=== PATIENT | female | born 1970 | race American Indian/Alaskan Native ===

== ENCOUNTER 2020-05-05 06:27 | Emergency (ER) | payer OTHER ==
[2020-05-05 07:51] VITALS: BP 154/93
[2020-05-05 08:10] LABS: Bilirubin,Urine NEG (Negative); Blood,Urine NEG (Negative); Color,Urine Straw (Yellow); Protein,Urine <15 mg/dL mg/dL (Negative); RBC,Urine < 1.0 /HPF (0.0-6.0); Urobilinogen,Urine < 2.0 mg/dL (<2.0)
[2020-05-05 09:39] LABS: Hematocrit 38.3 % (30.3-42.9); Hemoglobin 12.6 gm/dl (10.1-14.3); Mean Corpuscular HGB Conc 33 % (30-34); Mean Corpuscular Volume 91 fl (79-97); Platelet Count 246 K/mm3 (140-440); Red Blood Count 4.19 M/mm3 (3.65-5.03); Red Cell Distribution Width 13.6 % (13.2-15.2)
[2020-05-05 10:02] LABS: Blood Urea Nitrogen 9 mg/dL (7-17); Calcium 9.1 mg/dL (8.4-10.2); Hemolysis Index 3
[2020-05-05 10:28] LABS: BUN/Creatinine Ratio 13
[2020-05-05] MEDS ORDERED: IBUPROFEN 800 MG TAB PO ONE (11:33)
--- NOTE | 2020-05-05 11:36 | Emergency Department Report ---
HPI - General Chief Complaint: Fever Time Seen by Provider: 05/05/20 11:27 - HPI HPI: This is a 49-year-old -[place] female presents to the emergency department with a 3-day history of generalized headache, body aches, fever, nausea without vomiting, sneezing, coughing, and the patient has developed a rash around her mouth. Patient's currently has similar symptoms and is waiting on the results of his Covid test. Patient's has been working with someone who was recently positive for COVID-19. The patient herself has a past history of previous breast cancer with double mastectomy. She has taken some Tylenol, Mucinex for her symptoms with some transient relief. No recent travel. She has a primary care physician but has not seen them regarding her symptoms. She denies any shortness of breath, chest pain, lower extremity swelling. ED Past Medical Hx - Past Medical History Previous Medical History?: Yes Additional medical history: brest ca - Surgical History Past Surgical History?: Yes Additional Surgical History: appendectomy, hysterectomy, mastectomy, ectopic preg - Social History Smoking Status: Never Smoker - Medications Home Medications: Home Medications Medication Instructions Recorded Confirmed Last Taken Type Acyclovir [Zovirax Tab] 400 mg PO Q8H #21 tab 05/05/20 Unknown Rx cephALEXin [Keflex] 500 mg PO Q8HR #21 cap 05/05/20 Unknown Rx ED Review of Systems ROS: Stated complaint: FEVER Other details as noted in HPI Comment: All other systems reviewed and negative Constitutional: chills, fever Eyes: denies: eye pain, vision change ENT: denies: ear pain, throat pain Respiratory: cough. denies: shortness of breath Cardiovascular: denies: chest pain, palpitations Gastrointestinal: nausea. denies: abdominal pain, vomiting Genitourinary: denies: dysuria, discharge Musculoskeletal: myalgia. denies: joint swelling Skin: rash. denies: pruritus Neurological: headache. denies: numbness, paresthesias Physical Exam - Physical Exam Vital Signs: Vital Signs 05/05/20 05/05/20 07:46 11:23 Temperature 99.1 F 99.8 F H Pulse Rate 101 H Respiratory 18 Rate Blood Pressure 154/93 O2 Sat by Pulse 95 Oximetry Physical Exam: GENERAL: The patient is well-developed well-nourished. HENT: Normocephalic. Atraumatic. Patient has moist mucous membranes. EYES: Extraocular motions are intact. NECK: Supple. Trachea is midline. CHEST/LUNGS: Clear to auscultation. There is no respiratory distress noted. HEART/CARDIOVASCULAR: Regular. There is no tachycardia. There is no murmur. ABDOMEN: Abdomen is soft, nontender. Patient has normal bowel sounds. SKIN: Skin is warm and dry. There is a rash circumferentially around her mouth that appears to be multiple small papules versus vesicles. NEURO: The patient is awake, alert, and oriented. The patient is cooperative. The patient has no focal neurologic deficits. Normal speech. MUSCULOSKELETAL: There is no tenderness or deformity. There is no limitation range of motion. ED Course Vital Signs 05/05/20 05/05/20 07:46 11:23 Temperature 99.1 F 99.8 F H Pulse Rate 101 H Respiratory 18 Rate Blood Pressure 154/93 O2 Sat by Pulse 95 Oximetry ED Medical Decision Making - Lab Data Result diagrams: 05/05/20 08:51 05/05/20 08:51 - Medical Decision Making This patient presents with a 3-day history of a cough, fatigue, nausea without vomiting, body aches, and complains of a rash around her mouth. The patient's has similar symptoms and he has recently been around someone who is Covid positive. Patient had a chest x-ray that did not show any pneumonia, pleural effusions, or any other acute process. The patient's set of symptoms appear consistent with a viral syndrome. Given the the symptoms and approximation to a Covid positive individual, as well as his current pandemic, there is high suspicion of the patient could have COVID-19. We do not have [id number] testing and we only test those who are admitted to this hospital. Patient's vital signs have been reassuring including no hypoxia, but she does appear to have a low-grade fever developing. Patient appears safe for discharge home at this time. She was given Keflex and acyclovir to treat the rash around the mouth. We discussed isolation/quarantine from those individuals who are immunocompromised, elderly, or chronically ill/debilitated. We discussed outpatient COVID-19 testing. She will return to the emergency department with any worsening of her symptoms or with any acute distress. Critical Care Time: No Critical care attestation.: If time is entered above; I have spent that time in minutes in the direct care of this critically ill patient, excluding procedure time. ED Disposition Clinical Impression: Suspected COVID-19 virus infection, Rash and nonspecific skin eruption Disposition: TO HOME OR SELFCARE Is pt being admited?: No Condition: Stable Instructions: COVID-19, Rash, Adult, Droplet Precautions Additional Instructions: Please follow-up with your primary care physician in the next few days. 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 Take the medications as prescribed. Most of your symptoms combined appear consistent with a viral syndrome. Given this current pandemic, I cannot rule out that this is COVID-19. I am unable to test you for COVID-19 through the emergency department at this time. Please isolate/quarantine yourself from anybody who is immunocompromised, elderly or chronically ill/debilitated. I recommend that you seek outpatient COVID-19 testing. This can be done at some primary care offices, some urgent cares, and there should be a listing of testing facilities through the [facility]. Return to the emergency department with any worsening of your symptoms, new or concerning symptoms not addressed during this current emergency department visit, or with any acute distress. Prescriptions: cephALEXin [Keflex] 500 mg PO Q8HR #21 cap Acyclovir [Zovirax Tab] 400 mg PO Q8H #21 tab Referrals: PCP, Your [Other] - 2-3 Days Time of Disposition: 12:00
--- NOTE | 2020-05-05 12:17 | XRay Report ---
CHEST 2 VIEWS INDICATION / CLINICAL INFORMATION: Cough. COMPARISON: None available. FINDINGS: SUPPORT DEVICES: None. HEART / MEDIASTINUM: The heart size and pulmonary vasculature are normal. LUNGS / PLEURA: No significant pulmonary or pleural abnormality. No pneumothorax. ADDITIONAL FINDINGS: There are a few surgical clips overlying each breast. IMPRESSION: No acute findings. Signer Name: Davonte Cooney MD Signed: 05/05/2020 12:12 PM Workstation Name: [id number]
== END 2020-05-05 12:15 | disposition home or self-care (01) ==
LOC: ED 06:27
DX: R21 Rash and other nonspecific skin eruption (principal); R51.9 Headache, unspecified; R11.2 Nausea with vomiting, unspecified; Z20.828 Contact with and (suspected) exposure to other viral communicable diseases; Z90.49 Acquired absence of other specified parts of digestive tract; Z90.710 Acquired absence of both cervix and uterus; Z79.899 Other long term (current) drug therapy; Z88.8 Allergy status to other drugs, medicaments and biological substances
CPT/HCPCS: 36415; 71046; 80048; 81001; 85027; 99283